=== PATIENT | female | born 1985 | race Hispanic/Latino ===

== ENCOUNTER 2018-12-01 01:14 | Inpatient (IN) | payer OTHER ==
[2018-12-01] MEDS ORDERED: PROMETHAZINE 25 MG/ML VIAL IV PRN ×2 (10:04)
[2018-12-01] MEDS ORDERED: BUTORPHANOL 1 MG/ML INJ IV PRN (10:04)
[2018-12-01] MEDS ORDERED: Ringers Lactate 1,000 ML IV PRN (10:04)
[2018-12-01 10:22] LABS: RPR Titer ND
[2018-12-01 10:33] LABS: Basophils % 0.7 % (0-1.3); Eosinophils % 1.1 % (0-4.4); Hematocrit 32.5 % (36.0-45.0); Lymphocytes % 12.8 % (15.3-44.8); MPV 9.4 fL (7.6-11.3); Monocytes % 4.9 % (3.3-12.3); RBC Red Blood Cell Count 4.13 M/uL (3.86-4.86)
[2018-12-01] MEDS ORDERED: OXYTOCIN/LR 20 UNIT/1,000 ML BAG IV SCH (11:00)
[2018-12-01] MEDS ORDERED: Ringers Lactate 1,000 ML IV SCH (11:00)
[2018-12-01 11:02] LABS: Urine Appearance CLEAR; Urine Bilirubin NEGATIVE (NEG); Urine Blood NEGATIVE (NEG); Urine Color YELLOW; Urine Glucose NEGATIVE (NEG); Urine Protein NEGATIVE (NEG); Urine Specific Gravity <=1.005 (1.005-1.030); Urine Urobilinogen 0.2 mg/dL (0.2-1.0)
[2018-12-01 11:03] VITALS: BMI 46.6
[2018-12-01 11:16] LABS: Urine Microscopic Reflex NO UMIC
[2018-12-01] MEDS ORDERED: miSOPROStol 100 MCG TAB VAG PRN (11:17)
[2018-12-01] MEDS ORDERED: miSOPROStol 100 MCG TAB ONE (11:38)
[2018-12-01 11:50] LABS: Protime INR 0.88
[2018-12-01 12:04] LABS: ALT/SGPT 38 U/L (12-78); AST/SGOT 27 U/L (15-37); Albumin 2.4 g/dL (3.4-5.0); Alkaline Phosphatase 223 U/L (45-117); BUN Blood Urea Nitrogen 11 mg/dL (7-18); Bicarbonate 24 mmol/L (21-32); Bilirubin Direct < 0.1 mg/dL (0-0.2); Bilirubin Total 0.2 mg/dL (0.2-1.0); Glucose Level 108 mg/dL (74-106); Potassium 4.2 mmol/L (3.5-5.1); Sodium Level 138 mmol/L (136-145); Uric Acid 4.3 mg/dL (2.6-6.0)
[2018-12-01 21:51] LABS: RPR (Rapid Plasma Reagin) NON-REACT (NON-REACT)
[2018-12-01] MEDS ORDERED: ZOLPIDEM TARTRATE 5 MG TABLET PO PRN (21:59)
[2018-12-02] MEDS ORDERED: ROPIVACAINE HCL 100 ML IV PRN (07:39)
[2018-12-02] MEDS ORDERED: ROPIVACAINE HCL 0.2% 20ML AMP IV ONE (07:40)
[2018-12-02] MEDS ORDERED: FENTANYL CITR 100 MCG/2 ML IV ONE (07:42)
[2018-12-02] MEDS ORDERED: FAMOTIDINE 20 MG/2 ML VIAL IV ONE ×3 (07:44→20:03)
[2018-12-02] MEDS ORDERED: NA CIT/CITRIC AC 30 ML ORAL UDC PO ONE ×2 (07:45→19:39)
[2018-12-02] MEDS ORDERED: METOCLOPRAMIDE 10 MG/2mL INJ IV SCH ×2 (08:00→20:00)
--- NOTE | 2018-12-02 10:30 | P.PN ---
Date of Service: 12/02/18 Selected Entries 12/01/18 14:03 Temperature 97.7 F Pulse Rate 78 Respiratory 18 Rate Blood Pressure 136/78 Patient is a 33-year-old at 39 weeks and 2 days gestation who was admitted yesterday for induction of labor. Patient received 4 doses of Cytotec for cervical ripening. She has been started on Pitocin. Rupture of membranes was performed. She was 1 cm dilated clear fluid was noted.-3 station. scalp electrode was placed. Patient would like epidural placement anesthesia has been notified.
[2018-12-02] MEDS ORDERED: LIDOCAINE 1.5% W/EPI AMP 5 ML ONE (10:51)
[2018-12-02] MEDS ORDERED: ROPIVACAINE HCL 0 ML ONE (19:22)
[2018-12-02] MEDS ORDERED: CEFAZOLIN 3 GM in NA CHLORIDE 0.9% 100 ML IVPB ONE (19:39)
[2018-12-02] MEDS ORDERED: NA CIT/CITRIC AC 30 ML ORAL UDC ONE (20:02)
[2018-12-02] MEDS ORDERED: METOCLOPRAMIDE 10 MG/2mL INJ ONE (20:02)
[2018-12-02] MEDS ORDERED: CEFAZOLIN SODIUM 1 GM/VIAL ONE (20:04)
[2018-12-02] MEDS ORDERED: CEFAZOLIN/SWI 1gm 2 GM/20 ML SYR ONE ×2 (20:04→20:17)
[2018-12-02] MEDS ORDERED: CARBOPROST TROME 250 MCG/ML IM ONE (20:08)
[2018-12-02] MEDS ORDERED: METHYLERGONOVINE 0.2MG/ML AMP IM ONE (20:08)
[2018-12-02] MEDS ORDERED: LIDOCAINE 2% W/EPI 1:200,000 MPF 20 ML VIAL IM ONE (20:27)
[2018-12-02] MEDS ORDERED: OXYTOCIN 10 UNIT/ML ML IV ONE (20:51)
[2018-12-02] MEDS ORDERED: MORPHINE SULFATE/PF 1 MG/ML (10 ML AMP) ONE (21:00)
[2018-12-02] MEDS ORDERED: ONDANSETRON 4 MG/2 ML VIAL ONE (21:12)
[2018-12-02] MEDS ORDERED: ACETAMINOPHEN 500 MG TAB PO PRN (21:29)
[2018-12-02] MEDS ORDERED: BISACODYL 10 MG RECTAL SUPP RECT PRN (21:29)
[2018-12-02] MEDS ORDERED: DOCUSATE NA/SENNA CONC 1 TAB PO PRN (21:29)
[2018-12-02] MEDS ORDERED: Oxycodone HCl/Acetaminophen 1 TAB TAB PO PRN ×2 (21:29)
[2018-12-02] MEDS ORDERED: DOCUSATE NA 100 MG CAP PO PRN (21:31)
[2018-12-02] MEDS ORDERED: KETOROLAC 30 MG/ML INJ IV PRN (21:31)
--- NOTE | 2018-12-02 21:41 | P.OP ---
Frame Runner: Marshall Nguyen Preoperative diagnosis: Term , arrest of labor Postoperative diagnosis: same Primary procedure: Primary low transverse section Secondary procedure: none Other procedure(s): none Anesthesia: Epidural Estimated blood loss: 800cc Specimen: cord blood, placenta Findings: viable female cephalic presentation Operative Technique: The patient was taken to the operating room where spinal anesthesia was administered without difficulty. The patient was prepped and draped in the usual sterile fashion in the dorsal supine position with a leftward tilt. A Pfannenstiel skin incision was made with the scalpel and carried through to the underlying layer of fascia using the scalpel. The fascia was incised in the midline and extended laterally using Palomino scissors. Michael clamps were used to elevate the superior aspect of the fascial incision, which was elevated, and the underlying rectus muscles were dissected off bluntly and using Palomino scissors. Attention was then turned to the inferior aspect of the fascial incision, which in similar fashion was grasped with Michael clamps, elevated, and the underlying rectus muscles were dissected off bluntly and using the Bovie. The rectus muscles were dissected in the midline. The peritoneum was identified and entered using Metzenbaum scissors; this incision was extended superiorly and inferiorly with good visualization of the bladder. The bladder blade was inserted. The vesicouterine peritoneum was identified and entered sharply using Metzenbaum scissors. This incision was extended laterally and the bladder flap was created digitally. The bladder blade was reinserted. The lower uterine segment was incised in a transverse fashion using the scalpel and extended using bandage scissors as well as manual traction. Clear fluid was noted. The infant was subsequently delivered. The nose and mouth were bulb suctioned. The cord was clamped and cut. The was subsequently handed to the awaiting nursery nurse. The placenta was delivered spontaneously intact with a three-vessel cord noted. The uterus was exteriorized and cleared of all clots and debris. The uterine incision was repaired in 2 layers using 0 vicryol sutures. Hemostasis was visualized. The vesical uterine peritoneum was reapproximated with 3 O Vicryl. The uterus was returned to the abdomen. The uterine incision was reexamined and it was noted to be hemostatic. The rectus muscles were reapproximated in the midline using 0 Vicryl. The fascia was closed with 1 Vicryl suture, the subcutaneous layer was closed with 2-0 plain gut, and the skin was closed with 3 O Vicryl on a Dimitris needle. Sponge, lap, and instrument counts were correct x2. The patient was stable at the completion of the procedure and was subsequently transferred to the recovery room in stable condition. Complications: None Drain(s): Urinary catheter Transferred to: Recovery Room Condition: Good
[2018-12-03 02:11] VITALS: O2SAT 99
[2018-12-03 03:27] LABS: HBsAG Nonreactive (Nonreactive)
[2018-12-03 04:29] LABS: Absolute Lymphocytes (CBC) 1.6 K/uL (0.7-4.9); Basophils % 0.3 % (0-1.3); Eosinophils % 0.2 % (0-4.4); Hematocrit 25.9 % (36.0-45.0); Lymphocytes % 11.3 % (15.3-44.8); MPV 9.2 fL (7.6-11.3); Monocytes % 5.9 % (3.3-12.3)
[2018-12-03] MEDS ORDERED: PRENATAL VITAMIN PO SCH (09:00)
--- NOTE | 2018-12-03 09:42 | P.PN ---
Date of Service: 12/03/18 Selected Entries Selected Entries 12/03/18 04:00 Temperature 98.6 F Pulse Rate 98 H Respiratory 18 Rate Blood Pressure 143/76 H Laboratory Tests 12/01/18 12/03/18 09:55 04:06 WBC 8.0 14.2 H D Hgb 10.3 L 8.5 L Hct 32.5 L 25.9 L D Plt Count 254 253 The patient is postop day 1 from a primary section. She is doing well. She is tolerating diet. Her pain is well controlled. She is afebrile. She has no complaints today she is bonding well with the baby and is breast- feeding. Vital sign stable General: Resting in bed no distress Head and neck: Normocephalic atraumatic, supple Respiratory: Symmetric nonlabored breathing Abdomen: Soft, mildly distended, mildly tender. Incision clean dry and intact Bilateral lower extremities: No clubbing cyanosis or edema. Assessment and plan patient is postop day 1 after repeat section she is doing well. Pain is well controlled. Discontinue IV discontinue Saunders catheter. Encourage patient to ambulate. Possible discharge home tomorrow. Will monitor for symptoms of anemia due to drop in hg/hct. Repeat testing will be done as well.
[2018-12-03] MEDS: IBUPROFEN 400 MG TAB PO PRN ×2 (11:40→17:02)
[2018-12-03] MEDS ORDERED: FERROUS SULFATE 325 MG TAB PO SCH (21:00)
[2018-12-04 04:13] LABS: Hematocrit 23.9 % (36.0-45.0)
[2018-12-04] MEDS: IBUPROFEN 400 MG TAB PO PRN (05:20)
[2018-12-04] MEDS ORDERED: PRENATAL VITAMIN PO SCH (09:00)
[2018-12-04 10:09] LABS: Hematocrit 23.3 % (36.0-45.0)
[2018-12-04 14:30] VITALS: BP 135/83; TEMP 97.9
== END 2018-12-04 15:00 | disposition home or self-care (01) | DRG 788 ==
LOC: 2ND-WC 09:37
PROVIDERS: ADMIT Student in an Organized Health Care Education/Training Program; ATTEND Student in an Organized Health Care Education/Training Program
PROC: 3E0P7VZ Introduction of Hormone into Female Reproductive, Via Natural or Artificial Opening (ICD-10-PCS; 2018-12-01)
PROC: 10D00Z1 Extraction of Products of Conception, Low, Open Approach (ICD-10-PCS; principal; 2018-12-02 19:31)
DX: O62.1 Secondary uterine inertia (principal); Z3A.39 39 weeks gestation of pregnancy; Z37.0 Single live birth; O99.214 Obesity complicating childbirth; E66.9 Obesity, unspecified
CPT/HCPCS: 36415; 80048; 80076; 81003; 84550; 85014; 85018; 85025; 85610; 85730; 86592; 86850; 86900; 86901; 87340; 88307; J0595; J0690; J2001; J2210; J2405; J2550; J2590; J2765; J2795; J3010